=== PATIENT | male | born 1980 | race Caucasian/White ===

== ENCOUNTER 2018-11-04 14:41 | Emergency (ER) | payer SELFPAY ==
[2018-11-04] VITALS (34 sets, daily range): BP systolic 130–177; BP diastolic 73–124; PULSE 73–119; RESP 11–21; TEMP 36.9–37.2; O2SAT 87–100
--- NOTE | 2018-11-04 14:47 | DI.CT_ITS ---
SYMPTOMS/DIAGNOSIS: H/O BRAIN CANCER, NEW SEIZURE AFTER [address]: Cranial CT was performed prior to and following intravenous infusion of 100 of Omnipaque 350. The patient has reportedly had previous resection of cerebral tumor. There is a right frontal craniotomy and a large area of right frontal encephalomalacia. No mass effect. No enhancement on post contrast examination. No previous scans available for comparison. CONCLUSION: No evidence of acute intracranial hemorrhage, doubt recurrent tumor. Previous scan requested for comparison.
--- NOTE | 2018-11-04 14:51 | ED.GENADUL_ITS ---
Discharge Plan Disposition Patient Disposition: HOME Condition: Good Discharge Details Chief Complaint: Seizure Clinical Impression: Seizure Primary Care Provider: Pat,Local ED Provider: Elliot Burr Home Meds and New Rx's Prescriptions: New levetiracetam [Keppra] 500 mg tablet 500 mg PO BID Qty: 60 RF: 0 Discharge Instructions Instructions: Recurrent Seizures in Adults (ED) Additional Instructions: Please take medication as directed. Please follow-up immediately with Dr. Lagos as directed. Please follow-up with your MRI when you are contacted for the appointment. If you notice any worsening of your symptoms, or any new symptoms such as vomiting, diarrhea, fever, chills, shortness of breath, chest pain, numbness, weakness, or fainting , please return immediately to the emergency department for reevaluation. Please follow up with your primary care provider as soon as possible for reassessment and reevaluation. As always, it was a pleasure participating in your medical care today. Please leave the dressing on for 24 hours, then you may remove and begin cleaning the wound at least twice a day with soap and water. Continue to apply antibiotic ointment. Do not directly soak the area. Watch for any signs of infection and return if any increasing redness, swelling, pain, drainage. Referrals: Jackelyn Turner MD [ [facility] STAFF PHYSICIAN] - Medical Decision Making This is a pleasant 56-year-old male with a past medical history of brain cancer that was surgically removed in 2007, who presents today for evaluation of seizure. He has never been on antiepileptics, and he had no problem with seizures after the tumor was excised. He has not had any neurology follow-up recently out of a lack of need. He denies any chronic headaches over the last few weeks, any new neurologic changes, or any numbness tingling or weakness. Physical exam demonstrates a notably mashed tongue, with bleeding but no evidence of laceration. No focal neurologic deficits, no clinical evidence of meningitis. No other abnormalities. Differential certainly includes return of his cancer, or potentially seizure secondary to the notable amount of stress that he is currently under with his court case. We will rehydrate, evaluate for any cardiac or metabolic abnormality. We will get a CT scan to rule out change in his brain or acute intracranial process. 4:[address] scan has returned negative for any acute process per radiology. Laboratory workup demonstrates mild anion gap, notably secondary to the low bicarb, most likely secondary to his seizure. Sodium potassium and chloride are within normal limits. Mild acute kidney injury with a creatinine of 1.57, no previous creatinines for review. Troponin normal EKG benign, pending UDS. I did contact Dr. Lagos and discussed the case with her, at this time it is felt that he can be safely discharged with prompt neurology follow-up. We will load him with 2 g of Keppra here, and a prescription for 500 twice daily. We will order an outpatient MRI with prompt follow-up with neurology. 5:29 PM The patient has been given his load of Keppra, he still is doing well. The patient is now letting us know that he does not have insurance, we have elicited the help of case management, he has been given a referral for the insurance Center for new insurance, as well as medication help. We will give him some Keppra to go home with in the meantime. He will be following up with the insurance center tomorrow. Additionally we will place an order for an MRI with and without contrast that is been requested by Dr. Lagos. We have discussed this with the imaging, and we have been told that the order provided here in the emergency department will be sufficient to have the test completed. We discussed red flags which to return, as well as importance of avoiding driving, firearm use, or heavy machinery use. I have extensively reviewed the treatment plan and discharge instructions with the patient and their family. I have addressed all patient concerns at this time. The patient and family was made aware of what symptoms to monitor for that would warrant a return to the emergency department. Discussed the plan with the patient and family, they demonstrate verbal understanding and agreement with our assessment and plan at this time. EKG 14: 44 Rate 110, intervals normal, sinus tachycardia, peaking of T waves in V2 and V3, minimal J-point less than 1 mm of elevation in V2, no reciprocal depression, no Q waves, inverted T wave in lead III. Normal EKG Patient Name: IVET JOHNSON #: [id number]: ER Ordering Provider: Elliot Burrunt #: [id number]: REG ER Primary Care Provider: Nina Stewart Date of Exam: 11/04/18Sex: M : 1980Age: 38 Exam(s) a CT:CT head wo/w SYMPTOMS/DIAGNOSIS: H/O BRAIN CANCER, NEW SEIZURE AFTER [address]: Cranial CT was performed prior to and following intravenous infusion of 100 of Omnipaque 350. The patient has reportedly had previous resection of cerebral tumor. There is a right frontal craniotomy and a large area of right frontal encephalomalacia. No mass effect. No enhancement on post contrast examination. No previous scans available for comparison. CONCLUSION: No evidence of acute intracranial hemorrhage, doubt recurrent tumor. Previous scan requested for comparison. [id number]: Total DLP = 0.00 mGy-cm HPI General Date/Time Provider Initiated Documentation: 11/04/18 14:47 . HPI Narrative: This is a 38-year-old male with a past medical history of brain cancer, which was surgically excised in 2007, who has had no seizures since then. He presents today for evaluation of seizure. Family heard a thud, when the went to see him he was shaking, eyes were rolled in the back of his head and he is biting his tongue actively. This lasted 1-2 minutes, by the time EMS arrived he had stopped seizing, and was initially combative, but gradually returned to his normal mental baseline and would follow all commands. By the time he arrived to the ER the patient was acting normally. Patient denies any complaints of neck pain, fever, chills, chest pain, shortness of breath, vomiting, diarrhea, numbness, tingling, weakness, recent alcohol or drug use. He has had notable stressors in life including a court hearing today where there was a chance he would lose his children to [facility] custody. The patient has had no seizures since 2007. He is not on any antiepileptic medications. He has not seen neurology since 2007. The patient denies any other complaints at this time. No other modifying factors. Of note the patient is currently taking clindamycin as prescribed for sinus infection. He is only been taking this for the last few days. Related Data Home Medications Medication Instructions Recorded Confirmed levetiracetam [Keppra] 500 mg PO BID #60 tab 11/04/18 Previous Rx's Medication Instructions Recorded levetiracetam [Keppra] 500 mg PO BID #60 tab 11/04/18 General Stated Complaint: Seizure JG: 2 Review of Systems Review of Systems All systems reviewed & are unremarkable except as noted in HPI and below PFSH Social History Smoking/Tobacco Use Status: Former Tobacco Use Alcohol Intake: current Alcohol Intake frequency: a few times a week Substance use type: marijuana Do you feel safe at home: Yes Do you feel safe in your relationship?: Yes Exam Narrative Exam Narrative: 1.Const: Well-nourished, Well-developed, appearing stated age 2.Eyes: PERRL, no conjunctival injection, and symmetrical lids. 3.ENT: Patient does demonstrate notable tongue biting for the anterior and lateral components. No evidence of laceration though. Notable bruising and mild bleeding atraumatic external nose and ears. Moist MM. Neck: Symmetric, trachea midline, No thyromegaly. There is no evidence of raccoon eyes, saenz sign, CSF rhinorrhea, mastoid tenderness, cranial crepitus, hemotympanum, exophthalmos, or hyphema. Patient demonstrates intact dentition with no signs of tooth avulsion or fracture, no signs of jaw deformity, no evidence of a LeFort's fracture, with an intact palate, nose and orbital region. There is no evidence of a nasal septal hematoma. No proptosis. Jaw closes symmetrically. Airway is clear. 4.CVS: +S1/S2, No murmurs or gallops. Peripheral pulses 2+ and equal in all extremities. Brisk capillary refill in all extremities. 5.RESP: Unlabored respiratory effort. Clear to auscultation bilaterally. No wheezes rales or rhonchi 6.GI: Soft, Nontender/Nondistended, No hepatosplenomegaly. No guarding or rebound. 7.MSK: Normocephalic/Atraumatic, Extremities w/o deformity or ttp No cyanosis or clubbing, Normal movement of all extremities 8.Skin: Warm, Dry. No rashes or lesions. 9.Neuro: international student advisor II-XII grossly intact. Sensation grossly intact, no focal neurologic deficits. All 6 cardinal planes of vision are fully intact. No evidence of rotatory or vertical nystagmus. The patient demonstrated a normal gwtvfp-rndu-pjioll, good dexterity. There was no evidence of dysdiadochokinesia. Patient was able to ambulate without difficulty. There was no wide-based gait. Romberg, and xqry-de-tdsr are both normal on testing. Sensation was intact bilaterally as well as muscle strength bilaterally for all extremities. Patient was able to verbalize butter cup with no slurring, or miss pronunciation. 10.Psych: (AAO) x3. Appropriate mood and affect Course Vital Signs Temperature 37.2 C 11/04/18 14:41 Pulse 111 H 11/04/18 14:41 Respiratory Rate 17 11/04/18 14:41 Blood Pressure 168/109 H 11/04/18 14:41 Pulse Oximetry 97 11/04/18 14:41 Temperature 37.2 C 11/04/18 14:41 Temperature Source Temporal Artery Scan 11/04/18 14:41 Pulse 111 H 11/04/18 14:41 Respiratory Rate 17 11/04/18 14:41 Respiratory Effort Non-Labored 11/04/18 14:45 Respiratory Depth Normal 11/04/18 14:45 Respiratory Pattern Normal 11/04/18 14:45 Blood Pressure 168/109 H 11/04/18 14:41 Pulse Oximetry 97 11/04/18 14:41 Pain Level 0 11/04/18 14:41
[2018-11-04] MEDS: Normal Saline 1,000 ML 1000 ML IV (15:00)
[2018-11-04 15:04] LABS: Abs Immature Grans 0.03 k/cumm (0.0-0.09); Absolute Basophil Count 0.07 k/cumm (0.0-0.2); Absolute Eosinophil Count 0.16 k/cumm (0.0-0.7); Absolute Lymphocyte Count 2.29 k/cumm (1.2-3.4); Absolute Monocyte Count 0.62 k/cumm (0.11-0.7); Absolute Neutrophil Count 5.34 k/cumm (1.2-6.7); Basophils % 0.8; Eosinophils % 1.9; HCT 46.4 % (40.0-50.0); Immature Grans % 0.4; Lymphocytes % 26.9; Mean Corp. HGB Concentration 34.5 g/dL (32.0-36.0); Mean Corpuscular Hemoglobin 30.7 pg (27.0-33.0); Mean Corpuscular Volume 88.9 fL (80-95); Mean Platelet Volume 9.2 fL (8.0-11.0); Monocytes % 7.3; Neutrophils % 62.7; Platelet Count 281 x1000/uL (130-400); RBC 5.22 m/cumm (4.50-6.00); RBC Distribution Width 12.6 % (11.8-14.1); White Blood Cell Count 8.51 k/cumm (4.4-10.8)
[2018-11-04] MEDS: Omnipaque 350 MG/ML 100 ML BTL IJ (15:13)
[2018-11-04] MEDS: Acetaminophen 500 MG TAB 1000 MG PO (15:20)
[2018-11-04 15:21] LABS: ALT 36 U/L (12-78); AST 25 U/L (15-37); Albumin 4.4 g/dL (3.4-5.0); Alkaline Phosphatase 77 U/L (46-116); Anion Gap 20.1 mmol/L (3-11); BUN 14 mg/dL (7-18); Bilirubin, Total 0.3 mg/dL (0.2-1.0); CO2 18.9 mmol/L (21.0-32.0); CREATININE 1.57 mg/dL (0.70-1.30); Calcium 9.6 mg/dL (8.5-10.1); Chloride 97 mmol/L (98-107); Estimated GFR 49.43 (mL/min/1.73m2); Glucose 133 mg/dL (70-100); Potassium 3.8 mmol/L (3.5-5.1); Sodium 136 mmol/L (136-145); Total Protein 8.5 g/dL (6.4-8.2)
[2018-11-04 15:33] LABS: Troponin I < 0.02 ng/mL (0.00-0.06)
[2018-11-04 15:42] LABS: ETHANOL BLOOD < 3.0 mg/dL (<3)
[2018-11-04 16:31] LABS: *AMPHETAMINES SCREEN URINE Negative (Negative); *BARBITURATES SCREEN URINE Negative (Negative); *BENZODIAZEPINES SCREEN URINE Negative (Negative); Cannabinoids THC Negative (Negative); Cocaine Screen,Urine Negative (Negative); METHADONE URINE SCREEN Negative (Negative); OPIATES URINE SCREEN Negative (Negative)
[2018-11-04 16:38] LABS: Tricyclic Antidepressants Negative (Negative)
[2018-11-04] MEDS: levETIRAcetam 2,000 MG in Normal Saline 100 ML 400 MG IVPB (16:38)
[2018-11-04] MEDS: Ketorolac 30 MG/ML VIAL IVP (17:03)
[2018-11-04] MEDS: levETIRAcetam 500 MG TAB 3000 MG PO (17:59)
--- NOTE | 2018-11-05 16:29 | PDOC.ERCMPRO ---
Care Management Progress Note Gil was actively weeping when CM entered the room, he regulated immediately and became pleasant in interaction and forthcoming with information. He processed prior interventions with brain cancer and his fears that this event was a recurrence. CM provided validation and supportive listening. CM provided patient education and resources for follow up including [employer] for insurance support. CM reviewed contact information for further needs.
== END 2018-11-04 18:00 | disposition home or self-care (01) ==
PROVIDERS: Emergency Provider Student in an Organized Health Care Education/Training Program
DX: R56.9 Unspecified convulsions (principal)
CPT/HCPCS: 36415; 36416; 80053; 80307; 82962; 96361; 96365; 96375; 99285; 70470; 80320; 84484; 85025; J1885; J1953; J3490

== ENCOUNTER 2019-01-12 14:03 | Emergency (ER) | payer SELFPAY ==
[2019-01-12] VITALS (10 sets, daily range): BP systolic 122–158; BP diastolic 67–127; PULSE 89–114; RESP 13–21; TEMP 36.7; O2SAT 90–98
--- NOTE | 2019-01-12 14:04 | W.ED.GENAD ---
Discharge Plan Disposition Patient Disposition: HOME Condition: Improving Discharge Details Chief Complaint: Seizure Clinical Impression: Seizure disorder Primary Care Provider: None,None ED Provider: Aramis Barnes Home Meds and New Rx's Prescriptions: Continued levetiracetam [Keppra] 500 mg tablet 500 mg PO BID Qty: 60 RF: 0 Discharge Instructions Instructions: Recurrent Seizures in Adults (ED) Additional Instructions: Please restart Keppra as previously prescribed. As discussed with care management, the medication is approximately $24 at [facility] for 3-month supply, $23 per month at the pharmacy in [place]. You received a referral to neurology at the previous visit, please follow-up with them as well. Return to the emergency department for any acute concerns. Home to rest today. Small, frequent sips of fluids to maintain hydration as you are dehydrated on laboratories today. Medical Decision Making 38-year-old male with history of distant craniotomy for removal of tumor without persistent disease burden, who was seen in October for new onset seizure for which she had a CT scan of the head and was prescribed Keppra. He was unable to fill the prescription of Keppra due to financial concerns. 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 He had mild tongue biting but denies other injury. He arrives improved and without complaint. His neurologic exam is unremarkeable. Patient placed on a security monitor, given fluid bolus, referred for laboratory testing. He underwent CT scan of the head in October, his neurologic examination is normal and he is not been taking his antiepileptic. Labs note mild dehydration with an elevated BUN. Seen by care management consultation regarding restarting the previously prescribed Keppra. Lab Data Lab results reviewed: Yes I reviewed the patient's lab results. Laboratory Results - last 24 hr 01/12/19 01/12/19 14:15 14:15 WBC 8.05 RBC 4.91 Hgb 15.5 Hct 43.5 MCV 88.6 MCH 31.6 MCHC 35.6 RDW 13.1 Plt Count 235 MPV 9.3 Immature Gran % 0.7 Neutrophils % 63.4 Lymphocytes % 22.4 Monocytes % 6.8 Eosinophils % 5.7 Basophils % 1.0 Absolute Neutrophils 5.10 Absolute Lymphocytes 1.80 Absolute Monocytes 0.55 Absolute Eosinophils 0.46 Absolute Basophils 0.08 Sodium 138 Potassium 4.0 Chloride 101 Carbon Dioxide 15.9 L Anion Gap 21.1 H BUN 19 H Creatinine 1.59 H Estimated GFR/1.73 m2 48.71 Glucose 155 H Calcium 9.3 Total Bilirubin 0.6 AST 22 ALT 31 Alkaline Phosphatase 76 Total Protein 7.9 Albumin 4.2 HPI General Mode of arrival: EMS. Date/Time Provider Initiated Documentation: 01/12/19 14:47. Limitations to Documentation: no limitations. Information obtained by: patient, family and EMS. History of Present Illness 38 year old M presents to the emergency department with the chief complaint of Seizure x1, resolved, described as mild and similar to prior episodes, and is localized to the upper extremity and lower extremity. Patient started experiencing this minute(s) and it has been now resolved. No relieving factors improve symptom(s), Other factors that worsen symptoms (Stress) . Patient notes no other symptoms.; denies fever/chills and headaches. Patient did receive the following treatments prior to arrival, none Related Data Home Medications Medication Instructions Recorded Confirmed levetiracetam [Keppra] 500 mg PO BID #60 tab 01/12/19 Previous Rx's Medication Instructions Recorded levetiracetam [Keppra] 500 mg PO BID #60 tab 01/12/19 Allergies Allergy/AdvReac Type Severity Reaction Status Date / Time tramadol Allergy Unverified 01/12/19 14:08 General Stated Complaint: Seizure JG: 2 Review of Systems Review of Systems Has not been taking Keppra. 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 Denies headache. 8 systems reviewed and otherwise- [facility] Social History Smoking/Tobacco Use Status: Former Tobacco Use Alcohol Intake: current Alcohol Intake frequency: a few times a week Drug use: Occasionally Substance use type: marijuana Do you feel safe at home: Yes Do you feel safe in your relationship?: Yes Exam Narrative Exam Narrative: GEN: awake, alert, oriented 3. Pleasant, well groomed, interactive. HEAD: Normocephalic, atraumatic ENT: Mucous membranes moist, oropharynx with abrasion right lateral tongue- otherwise unremarkable, External ear exam unremarkable EYES: PERRL, EOMI NECK: Full ROM, no DARYL, no menigismus CHEST/RESP: Nontender, clear to auscultation bilateral, no wheeze/rhonchi/rales CARDIOVASCULAR: RRR, no murmur, rub zachary. 2+ Rad pulse bilateral ABDOMEN: Soft, nontender, no mass. +Bowel sounds EXT: Full ROM, no edema, no rash Neuro: Grossly normal neurologic exam, conversant, interactive. Cranial nerves II through XII intact, [id number]-ip-[id number] intact, visual mcgee intact Psych: Speech fluent, thoughts congruent, affect normal Course Vital Signs Temperature 36.7 C 01/12/19 13:58 Pulse 100 H 01/12/19 13:58 Respiratory Rate 17 01/12/19 13:58 Blood Pressure 158/127 H 01/12/19 13:58 Pulse Oximetry 98 01/12/19 13:58 Temperature 36.7 C 01/12/19 13:58 Temperature Source Skin 01/12/19 13:58 Pulse 100 H 01/12/19 13:58 Respiratory Rate 17 01/12/19 13:58 Blood Pressure 158/127 H 01/12/19 13:58 Blood Pressure Position Supine 01/12/19 13:58 Pulse Oximetry 98 01/12/19 13:58 Oxygen Delivery Method Room Air 01/12/19 13:58 Oxygen Flow Rate 0 01/12/19 13:58 Pain Level 4 01/12/19 13:58
[2019-01-12] MEDS: Normal Saline 1,000 ML 1000 ML IV (14:05)
--- NOTE | 2019-01-12 14:07 | ED.GENADUL_ITS ---
Discharge Plan Disposition Patient Disposition: HOME Condition: Improving Discharge Details Chief Complaint: Seizure Clinical Impression: Seizure disorder Primary Care Provider: None,None ED Provider: Aramis Barnes Home Meds and New Rx's Prescriptions: Continued levetiracetam [Keppra] 500 mg tablet 500 mg PO BID Qty: 60 RF: 0 Discharge Instructions Instructions: Recurrent Seizures in Adults (ED) Additional Instructions: Please restart Keppra as previously prescribed. As discussed with care management, the medication is approximately $24 at [facility] for 3-month supply, $23 per month at the pharmacy in [place]. You received a referral to neurology at the previous visit, please follow-up with them as well. Return to the emergency department for any acute concerns. Home to rest today. Small, frequent sips of fluids to maintain hydration as you are dehydrated on laboratories today. Medical Decision Making 38-year-old male with history of distant craniotomy for removal of tumor without persistent disease burden, who was seen in October for new onset seizure for which she had a CT scan of the head and was prescribed Keppra. He was unable to fill the prescription of Keppra due to financial concerns. 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 He had mild tongue biting but denies other injury. He arrives improved and without complaint. His neurologic exam is unremarkeable. Patient placed on a diagnostic cardiac sonographer, given fluid bolus, referred for laboratory testing. He underwent CT scan of the head in October, his neurologic examination is normal and he is not been taking his antiepileptic. Labs note mild dehydration with an elevated BUN. Seen by care management consultation regarding restarting the previously prescribed Keppra. Lab Data Lab results reviewed: Yes I reviewed the patient's lab results. Laboratory Results - last 24 hr 01/12/19 01/12/19 14:15 14:15 WBC 8.05 RBC 4.91 Hgb 15.5 Hct 43.5 MCV 88.6 MCH 31.6 MCHC 35.6 RDW 13.1 Plt Count 235 MPV 9.3 Immature Gran % 0.7 Neutrophils % 63.4 Lymphocytes % 22.4 Monocytes % 6.8 Eosinophils % 5.7 Basophils % 1.0 Absolute Neutrophils 5.10 Absolute Lymphocytes 1.80 Absolute Monocytes 0.55 Absolute Eosinophils 0.46 Absolute Basophils 0.08 Sodium 138 Potassium 4.0 Chloride 101 Carbon Dioxide 15.9 L Anion Gap 21.1 H BUN 19 H Creatinine 1.59 H Estimated GFR/1.73 m2 48.71 Glucose 155 H Calcium 9.3 Total Bilirubin 0.6 AST 22 ALT 31 Alkaline Phosphatase 76 Total Protein 7.9 Albumin 4.2 HPI General Mode of arrival: EMS . Date/Time Provider Initiated Documentation: 01/12/19 14:47 . Limitations to Documentation: no limitations . Information obtained by: patient, family and EMS . History of Present Illness 38 year old M presents to the emergency department with the chief complaint of Seizure x1, resolved, described as mild and similar to prior episodes, and is localized to the upper extremity and lower extremity. Patient started experiencing this minute(s) and it has been now resolved. No relieving factors improve symptom(s), Other factors that worsen symptoms (Stress) . Patient notes no other symptoms.; denies fever/chills and headaches. Patient did receive the following treatments prior to arrival, none Related Data Home Medications Medication Instructions Recorded Confirmed levetiracetam [Keppra] 500 mg PO BID #60 tab 01/12/19 Previous Rx's Medication Instructions Recorded levetiracetam [Keppra] 500 mg PO BID #60 tab 01/12/19 Allergies Allergy/AdvReac Type Severity Reaction Status Date / Time tramadol Allergy Unverified 01/12/19 14:08 General Stated Complaint: Seizure JG: 2 Review of Systems Review of Systems Has not been taking Keppra. 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 Denies headache. 8 systems reviewed and otherwise- [facility] Social History Smoking/Tobacco Use Status: Former Tobacco Use Alcohol Intake: current Alcohol Intake frequency: a few times a week Drug use: Occasionally Substance use type: marijuana Do you feel safe at home: Yes Do you feel safe in your relationship?: Yes Exam Narrative Exam Narrative: GEN: awake, alert, oriented 3. Pleasant, well groomed, interactive. HEAD: Normocephalic, atraumatic ENT: Mucous membranes moist, oropharynx with abrasion right lateral tongue- otherwise unremarkable, External ear exam unremarkable EYES: PERRL, EOMI NECK: Full ROM, no DARYL, no menigismus CHEST/RESP: Nontender, clear to auscultation bilateral, no wheeze/rhonchi/rales CARDIOVASCULAR: RRR, no murmur, rub zachary. 2+ Rad pulse bilateral ABDOMEN: Soft, nontender, no mass. +Bowel sounds EXT: Full ROM, no edema, no rash Neuro: Grossly normal neurologic exam, conversant, interactive. Cranial nerves II through XII intact, [id number] intact, visual mcgee intact Psych: Speech fluent, thoughts congruent, affect normal Course Vital Signs Temperature 36.7 C 01/12/19 13:58 Pulse 100 H 01/12/19 13:58 Respiratory Rate 17 01/12/19 13:58 Blood Pressure 158/127 H 01/12/19 13:58 Pulse Oximetry 98 01/12/19 13:58 Temperature 36.7 C 01/12/19 13:58 Temperature Source Skin 01/12/19 13:58 Pulse 100 H 01/12/19 13:58 Respiratory Rate 17 01/12/19 13:58 Blood Pressure 158/127 H 01/12/19 13:58 Blood Pressure Position Supine 01/12/19 13:58 Pulse Oximetry 98 01/12/19 13:58 Oxygen Delivery Method Room Air 01/12/19 13:58 Oxygen Flow Rate 0 01/12/19 13:58 Pain Level 4 01/12/19 13:58
[2019-01-12 14:25] LABS: HCT 43.5 % (40.0-50.0); HGB 15.5 g/dL (13.5-17.5); Lymphocytes % 22.4; Mean Corp. HGB Concentration 35.6 g/dL (32.0-36.0); Mean Corpuscular Hemoglobin 31.6 pg (27.0-33.0); Mean Corpuscular Volume 88.6 fL (80-95); Mean Platelet Volume 9.3 fL (8.0-11.0); Monocytes % 6.8; Neutrophils % 63.4; Platelet Count 235 x1000/uL (130-400); RBC 4.91 m/cumm (4.50-6.00); RBC Distribution Width 13.1 % (11.8-14.1); White Blood Cell Count 8.05 k/cumm (4.4-10.8)
[2019-01-12 14:26] LABS: Abs Immature Grans 0.06 k/cumm (0.0-0.09); Absolute Basophil Count 0.08 k/cumm (0.0-0.2); Absolute Eosinophil Count 0.46 k/cumm (0.0-0.7); Absolute Monocyte Count 0.55 k/cumm (0.11-0.7); Eosinophils % 5.7; Immature Grans % 0.7
[2019-01-12 14:40] LABS: ALT 31 U/L (12-78); AST 22 U/L (15-37); Albumin 4.2 g/dL (3.4-5.0); Alkaline Phosphatase 76 U/L (46-116); Anion Gap 21.1 mmol/L (3-11); BUN 19 mg/dL (7-18); Bilirubin, Total 0.6 mg/dL (0.2-1.0); CO2 15.9 mmol/L (21.0-32.0); CREATININE 1.59 mg/dL (0.70-1.30); Calcium 9.3 mg/dL (8.5-10.1); Chloride 101 mmol/L (98-107); Estimated GFR 48.71 (mL/min/1.73m2); Glucose 155 mg/dL (70-100); Sodium 138 mmol/L (136-145); Total Protein 7.9 g/dL (6.4-8.2)
[2019-01-12] MEDS: levETIRAcetam 500 MG TAB 2000 MG PO (15:45)
== END 2019-01-12 15:49 | disposition home or self-care (01) ==
LOC: ER 15:13
PROVIDERS: Emergency Provider Emergency Medicine
DX: G40.89 Other seizures (principal); Z98.890 Other specified postprocedural states
CPT/HCPCS: 36415; 80053; 96360; 99283; 85025

== ENCOUNTER 2019-11-18 09:50 | Outpatient (REF) | payer MEDICAID, SELFPAY ==
[2019-11-18 21:26] LABS: HCT 44.7 % (40.0-50.0); HGB 15.5 g/dL (13.5-17.5); Mean Corp. HGB Concentration 34.7 g/dL (32.0-36.0); Mean Corpuscular Hemoglobin 32.1 pg (27.0-33.0); Mean Corpuscular Volume 92.5 fL (80-95); Mean Platelet Volume 9.7 fL (8.0-11.0); Platelet Count 262 x1000/uL (130-400); RBC 4.83 m/cumm (4.50-6.00); RBC Distribution Width 12.4 % (11.8-14.1); White Blood Cell Count 5.57 k/cumm (4.4-10.8)
[2019-11-18 21:35] LABS: INR 0.9 (0.9-1.1); Prothrombin Time 9.3 sec (9.3-11.0)
[2019-11-18 21:50] LABS: VALPROIC ACID 30.6 ug/mL (50-100)
[2019-11-18 22:16] LABS: ALT 37 U/L (16-63); AST 18 U/L (15-37); Albumin 4.2 g/dL (3.4-5.0); Alkaline Phosphatase 55 U/L (46-116); Anion Gap 6.9 mmol/L (3-11); BUN 20 mg/dL (7-18); Bilirubin, Total 0.6 mg/dL (0.2-1.0); CO2 30.1 mmol/L (21.0-32.0); CREATININE 1.36 mg/dL (0.70-1.30); Calcium 9.4 mg/dL (8.5-10.1); Chloride 102 mmol/L (98-107); Estimated GFR 58.04 (mL/min/1.73m2); Glucose 95 mg/dL (74-106); Potassium 4.2 mmol/L (3.5-5.1); Sodium 139 mmol/L (136-145); Total Protein 7.8 g/dL (6.4-8.2)
== END 2019-11-18 10:10 ==
LOC: NCHCN 09:50
PROVIDERS: PCP Nurse Practitioner Community Health; Visit Provider Nurse Practitioner Community Health
DX: R56.9 Unspecified convulsions (principal); Z51.81 Encounter for therapeutic drug level monitoring; Z79.899 Other long term (current) drug therapy
CPT/HCPCS: 80053; 85027; 80164; 85610; 85730

== ENCOUNTER 2019-12-05 08:57 | Outpatient (REF) | payer MEDICAID, SELFPAY ==
[2019-12-05 21:28] LABS: VALPROIC ACID 84.4 ug/mL (50-100)
== END 2019-12-05 09:17 ==
LOC: NCHCN 08:57
PROVIDERS: PCP Nurse Practitioner Community Health; Visit Provider Nurse Practitioner Community Health
DX: R56.9 Unspecified convulsions (principal); Z51.81 Encounter for therapeutic drug level monitoring
CPT/HCPCS: 80164

== ENCOUNTER 2020-03-13 10:41 | Outpatient (REF) | payer MEDICAID, SELFPAY ==
[2020-03-13 21:23] LABS: Abs Immature Grans 0.03 10^3/uL (0.0-0.06); Absolute Basophil Count 0.05 10^3/uL (0.0-0.2); Absolute Eosinophil Count 0.09 10^3/uL (0.0-0.7); Absolute Lymphocyte Count 2.27 10^3/uL (1.2-3.4); Absolute Monocyte Count 0.74 10^3/uL (0.1-0.8); Absolute Neutrophil Count 3.43 10^3/uL (1.2-6.7); Basophils % 0.8; Eosinophils % 1.4; HCT 45.6 % (40.0-50.0); HGB 15.6 g/dL (13.5-17.5); Immature Grans % 0.5; Lymphocytes % 34.3; MCHC 34.2 % (32.0-36.0); MCV 93.6 fL (80-95); MPV 9.6 fL (8.0-11.0); Monocytes % 11.2; Neutrophils % 51.8; Nucleated RBC 0 %; Platelet Count 209 10^3/uL (130-400); RBC 4.87 10^6/uL (4.36-5.78); RDW 11.8 % (11.8-14.1); RDW-SD 40.3 fL; WBC 6.61 10^3/uL (4.4-10.8)
[2020-03-13 21:52] LABS: VALPROIC ACID 147.2 ug/mL (50-100)
[2020-03-13 21:57] LABS: ALT 62 U/L (16-63); AST 27 U/L (15-37); Alkaline Phosphatase 49 U/L (46-116); Anion Gap 10.3 mmol/L (3-11); BUN 12 mg/dL (7-18); Bilirubin, Total 0.6 mg/dL (0.2-1.0); CO2 27.7 mmol/L (21.0-32.0); CREATININE 1.09 mg/dL (0.70-1.30); Calcium 9.3 mg/dL (8.5-10.1); Chloride 101 mmol/L (98-107); Glucose 73 mg/dL (74-106); Potassium 3.9 mmol/L (3.5-5.1); Sodium 139 mmol/L (136-145); Total Protein 7.6 g/dL (6.4-8.2)
== END 2020-03-13 11:01 ==
LOC: NCHCN 10:41
PROVIDERS: PCP Nurse Practitioner Community Health; Visit Provider Nurse Practitioner Community Health
DX: R56.9 Unspecified convulsions (principal); Z51.81 Encounter for therapeutic drug level monitoring; Z79.899 Other long term (current) drug therapy
CPT/HCPCS: 80053; 80164; 85025

== ENCOUNTER 2020-03-16 08:17 | Outpatient (REF) | payer MEDICAID, SELFPAY ==
[2020-03-16 21:05] LABS: VALPROIC ACID 79.5 ug/mL (50-100)
== END 2020-03-16 08:37 ==
LOC: NCHCN 08:17
PROVIDERS: PCP Nurse Practitioner Community Health; Visit Provider Nurse Practitioner Community Health
DX: Z51.81 Encounter for therapeutic drug level monitoring (principal)
CPT/HCPCS: 80164

== ENCOUNTER 2020-10-01 16:17 | Outpatient (REF) | payer MEDICAID, SELFPAY ==
[2020-10-01 20:40] LABS: INR 0.9 (0.9-1.1); Prothrombin Time 9.4 sec (9.3-11.0)
[2020-10-01 21:34] LABS: HCT 45.7 % (40.0-50.0); HGB 15.7 g/dL (13.5-17.5); MCH 32.2 pg (27.0-33.0); MCHC 34.4 % (32.0-36.0); MCV 93.8 fL (80-95); MPV 9.4 fL (8.0-11.0); Platelet Count 230 10^3/uL (130-400); RBC 4.87 10^6/uL (4.36-5.78); RDW 12.3 % (11.8-14.1); RDW-SD 42.4 fL; WBC 5.79 10^3/uL (4.4-10.8)
[2020-10-01 21:49] LABS: ALT 39 U/L (16-63); AST 21 U/L (15-37); Albumin 4.2 g/dL (3.4-5.0); Alkaline Phosphatase 56 U/L (46-116); Anion Gap 11.2 mmol/L (3-11); BUN 19 mg/dL (7-18); Bilirubin, Total 0.2 mg/dL (0.2-1.0); CO2 25.8 mmol/L (21.0-32.0); CREATININE 1.4 mg/dL (0.70-1.30); Calcium 9.4 mg/dL (8.5-10.1); Calculated LDL 149 mg/dL (<100); Chloride 105 mmol/L (98-107); Cholesterol 217 mg/dL (<200); Estimated GFR 55.85 (mL/min/1.73m2); Glucose 89 mg/dL (74-106); HDL Cholesterol 43 mg/dL (40-60); Potassium 4.6 mmol/L (3.5-5.1); Sodium 142 mmol/L (136-145); Total Protein 7.9 g/dL (6.4-8.2); Triglyceride 125 mg/dL (<150)
== END 2020-10-01 16:18 | disposition home or self-care (01) ==
LOC: NCHCN 16:17
PROVIDERS: PCP Nurse Practitioner Community Health; Visit Provider Nurse Practitioner Community Health
DX: R56.9 Unspecified convulsions (principal); R03.0 Elevated blood-pressure reading, without diagnosis of hypertension; Z51.81 Encounter for therapeutic drug level monitoring; Z13.220 Encounter for screening for lipoid disorders
CPT/HCPCS: 80053; 80061; 85027; 85610

== ENCOUNTER 2020-12-05 11:41 | Outpatient (REF) | payer MEDICAID, SELFPAY ==
[2020-12-05 14:35] LABS: VALPROIC ACID 59.1 ug/mL (50-100)
== END 2020-12-05 11:42 | disposition home or self-care (01) ==
LOC: NCHCN 11:41
PROVIDERS: PCP Nurse Practitioner Community Health; Visit Provider Nurse Practitioner Community Health
DX: Z51.81 Encounter for therapeutic drug level monitoring (principal); Z79.899 Other long term (current) drug therapy; G40.89 Other seizures
CPT/HCPCS: 80164

== ENCOUNTER 2021-04-10 10:46 | Outpatient (REF) | payer MEDICAID, SELFPAY ==
[2021-04-10 22:19] LABS: VALPROIC ACID < 3 ug/mL
[2021-04-10 22:27] LABS: ALT 45 U/L (16-63); AST 23 U/L (15-37); Albumin 4.2 g/dL (3.4-5.0); Alkaline Phosphatase 59 U/L (46-116); Anion Gap 6.9 mmol/L (3-11); BUN 18 mg/dL (7-18); Bilirubin, Total 0.5 mg/dL (0.2-1.0); CO2 29.1 mmol/L (21.0-32.0); CREATININE 1.5 mg/dL (0.70-1.30); Calcium 9.3 mg/dL (8.5-10.1); Chloride 105 mmol/L (98-107); Estimated GFR 51.57 (mL/min/1.73m2); Glucose 89 mg/dL (74-106); Potassium 4.5 mmol/L (3.5-5.1); Sodium 141 mmol/L (136-145); Total Protein 7.6 g/dL (6.4-8.2)
== END 2021-04-10 10:47 | disposition home or self-care (01) ==
LOC: NCHCN 10:46
PROVIDERS: PCP Nurse Practitioner Community Health; Visit Provider Nurse Practitioner Community Health
DX: R56.9 Unspecified convulsions (principal); Z51.81 Encounter for therapeutic drug level monitoring
CPT/HCPCS: 80053; 80164

== ENCOUNTER 2021-04-18 17:09 | Outpatient (REF) | payer MEDICAID, SELFPAY ==
[2021-04-18 21:16] LABS: VALPROIC ACID 101.7 ug/mL
[2021-04-18 21:18] LABS: Anion Gap 7.7 mmol/L (3-11); BUN 18 mg/dL (7-18); CO2 29.3 mmol/L (21.0-32.0); CREATININE 1.7 mg/dL (0.70-1.30); Calcium 9.3 mg/dL (8.5-10.1); Chloride 106 mmol/L (98-107); Estimated GFR 44.64 (mL/min/1.73m2); Glucose 87 mg/dL (74-106); Potassium 4.6 mmol/L (3.5-5.1); Sodium 143 mmol/L (136-145)
== END 2021-04-18 17:10 | disposition home or self-care (01) ==
LOC: NCHCN 17:09
PROVIDERS: PCP Nurse Practitioner Community Health; Visit Provider Nurse Practitioner Community Health
DX: R56.9 Unspecified convulsions (principal); Z79.899 Other long term (current) drug therapy; Z51.81 Encounter for therapeutic drug level monitoring
CPT/HCPCS: 80048; 80164

== ENCOUNTER 2021-05-14 12:59 | Outpatient (REF) | payer MEDICAID, SELFPAY ==
[2021-05-14 22:58] LABS: Anion Gap 8.9 mmol/L (3-11); BUN 25 mg/dL (7-18); CO2 29.1 mmol/L (21.0-32.0); CREATININE 1.5 mg/dL (0.70-1.30); Calcium 9.5 mg/dL (8.5-10.1); Chloride 105 mmol/L (98-107); Estimated GFR 51.57 (mL/min/1.73m2); Glucose 58 mg/dL (74-106); Potassium 4.5 mmol/L (3.5-5.1); Sodium 143 mmol/L (136-145)
[2021-05-14 23:09] LABS: VALPROIC ACID 71.6 ug/mL
== END 2021-05-14 13:00 | disposition home or self-care (01) ==
LOC: NCHCN 12:59
PROVIDERS: PCP Nurse Practitioner Community Health; Visit Provider Nurse Practitioner Community Health
DX: R56.9 Unspecified convulsions (principal); Z51.81 Encounter for therapeutic drug level monitoring; I10 Essential (primary) hypertension
CPT/HCPCS: 80048; 80164

== ENCOUNTER 2021-07-09 14:41 | Outpatient (REF) | payer MEDICAID, SELFPAY ==
[2021-07-09 14:35] LABS: ALT 43 U/L (16-63); AST 31 U/L (15-37); Alkaline Phosphatase 47 U/L (46-116); Anion Gap 5.9 mmol/L (3-11); BUN 13 mg/dL (7-18); Bilirubin, Total 0.5 mg/dL (0.2-1.0); CO2 29.1 mmol/L (21.0-32.0); CREATININE 1.4 mg/dL (0.70-1.30); Calcium 9.2 mg/dL (8.5-10.1); Chloride 103 mmol/L (98-107); Estimated GFR 55.58 (mL/min/1.73m2); Glucose 72 mg/dL (74-106); Potassium 4.5 mmol/L (3.5-5.1); Sodium 138 mmol/L (136-145); Total Protein 7.1 g/dL (6.4-8.2)
[2021-07-09 14:37] LABS: VALPROIC ACID 45.8 ug/mL
== END 2021-07-09 14:42 | disposition home or self-care (01) ==
LOC: NCHCN 14:41
PROVIDERS: PCP Nurse Practitioner Community Health; Visit Provider Nurse Practitioner Family
DX: I10 Essential (primary) hypertension (principal); G40.109 Localization-related (focal) (partial) symptomatic epilepsy and epileptic syndromes with simple partial seizures, not intractable, without status epilepticus; Z51.81 Encounter for therapeutic drug level monitoring
CPT/HCPCS: 80053; 80164

== ENCOUNTER 2023-08-26 15:40 | Outpatient (REF) | payer MEDICAID, SELFPAY ==
[2023-08-26 21:19] LABS: HCT 46.1 % (40.0-50.0); HGB 15.7 g/dL (13.5-17.5); MCH 32.1 pg (27.0-33.0); MCHC 34.1 % (32.0-36.0); MCV 94 fL (80-95); MPV 8.7 fL (8.0-11.0); Platelet Count 264 10^3/uL (130-400); RBC 4.89 10^6/uL (4.36-5.78); RDW 13.1 % (11.8-14.1); RDW-SD 45.2 fL; WBC 7.08 10^3/uL (4.4-10.8)
[2023-08-26 21:42] LABS: ALT 40 U/L (16-63); AST 22 U/L (15-37); Albumin 3.5 g/dL (3.4-5.0); Alkaline Phosphatase 51 U/L (46-116); Anion Gap 9.3 mmol/L (3-11); BUN 18 mg/dL (7-18); Bilirubin, Total 0.2 mg/dL (0.2-1.0); CO2 27.7 mmol/L (21.0-32.0); CREATININE 1.1 mg/dL (0.70-1.30); Chloride 105 mmol/L (98-107); Estimated GFR 84.89 (mL/min/1.73m2); Glucose 132 mg/dL (74-106); Potassium 4.2 mmol/L (3.5-5.1); Sodium 142 mmol/L (136-145); Total Protein 7.8 g/dL (6.4-8.2)
== END 2023-08-26 15:41 | disposition home or self-care (01) ==
LOC: NCHCN 15:40
PROVIDERS: PCP Nurse Practitioner Community Health; Visit Provider Family Medicine
DX: G40.909 Epilepsy, unspecified, not intractable, without status epilepticus (principal)
CPT/HCPCS: 80053; 85027

== ENCOUNTER 2024-03-07 15:21 | Outpatient (REF) | payer MEDICAID, SELFPAY ==
[2024-03-07 16:24] LABS: ALT 52 U/L (16-63); AST 37 U/L (15-37); Albumin 3.6 g/dL (3.4-5.0); Alkaline Phosphatase 49 U/L (46-116); Anion Gap 8.2 mmol/L (3-11); BUN 12 mg/dL (7-18); Bilirubin, Total 0.45 mg/dL (0.2-1.0); CO2 27.8 mmol/L (21.0-32.0); CREATININE 1.3 mg/dL (0.70-1.30); Calcium 9.2 mg/dL (8.5-10.1); Calculated LDL 139 mg/dL (<100); Chloride 106 mmol/L (98-107); Cholesterol 222 mg/dL (<200); Estimated GFR 69.47 (mL/min/1.73m2); Glucose 105 mg/dL (74-106); HDL Cholesterol 48 mg/dL (40-60); Potassium 4.6 mmol/L (3.5-5.1); Sodium 142 mmol/L (136-145); Total Protein 7.3 g/dL (6.4-8.2); Triglyceride 175 mg/dL (<150)
[2024-03-07 16:30] LABS: VALPROIC ACID 86.1 ug/mL
[2024-03-07 16:32] LABS: Hemoglobin A1C 5.3 % (<5.7)
== END 2024-03-07 15:22 | disposition home or self-care (01) ==
LOC: NCHCN 15:21
PROVIDERS: PCP Nurse Practitioner Community Health; Visit Provider Family Medicine
DX: G40.802 Other epilepsy, not intractable, without status epilepticus (principal); Z13.1 Encounter for screening for diabetes mellitus; I10 Essential (primary) hypertension; Z13.220 Encounter for screening for lipoid disorders
CPT/HCPCS: 80053; 80061; 80164; 83036